=== PATIENT | female | born 1970 | race American Indian/Alaskan Native ===

== ENCOUNTER 2019-03-18 11:21 | Day surgery (SDC) | payer OTHER ==
[~2019-03-18 11:21] MED LIST: NACL 0.9% 1000 ML 1,000 ML IV SCH
--- NOTE | 2019-03-18 12:31 | Anesthesia Day of Surgery ---
Anesthesia Day of Surgery - Day of Surgery Patient Examined: Yes Patient H&P Reviewed: Yes Patient is NPO: Yes
--- NOTE | 2019-03-18 12:32 | Anesthesia Consultation ---
Anesthesia Consult and Med Hx Date of service: 03/18/19 - Airway Anesthetic Teeth Evaluation: Caps, Crowns, Bridges ROM Head & Neck: Adequate Mental/Hyoid Distance: Adequate Mallampati Class: Class I Intubation Access Assessment: Good - Pre-Operative Health Status ASA Pre-Surgery Classification: ASA2 Proposed Anesthetic Plan: MAC - Pulmonary Hx Asthma: Yes - Central Nervous System Hx Back Pain: Yes (LOW BACK PAIN) - Hematic Hx Sickle Cell Disease: No
[2019-03-18] MEDS ORDERED: XYLOCAINE 2% INFILTRATI ONE (13:24)
[2019-03-18] MEDS ORDERED: DIPRIVAN 10 MG/ML IV ONE (13:25)
[2019-03-18] MEDS ORDERED: SUBLIMAZE ONE (13:27)
--- NOTE | 2019-03-18 14:13 | Procedure Note ---
Date of procedure: 03/18/19 Pre-op diagnosis: Dyspepsia/Colon Polyp Screening Post-op diagnosis: other (Mild to Moderate Ina Esophagitis///////////////erosive Esophagitis/Gastritis/Multiple,Colon Polyps/Mild to Moderate Internal Hemorrhoids) Procedure: EGD with Biopsy/Colonoscopy with Cold Biospy and cold,Snare Polypectomt Anesthesia: [facility] Surgeon: LISA MAZA Estimated blood loss: minimal Pathology: list Specimen disposition: to lab Condition: stable Disposition: same day (Treat with PPI and Fluconazole. Avoid aspirin and NSAID for 4 days; otherwise resume home medication and follow up in 1 to 2 weeks ([phone]).)
--- NOTE | 2019-03-18 14:13 | Operative Report ---
PROCEDURE: Esophagogastroduodenoscopy with biopsy. INDICATIONS: The patient is a 48-year-old -[place] female who has been having some dyspeptic symptoms. She has an underlying history of asthma. EGD was done to make sure there was not any significant upper GI pathology present. DESCRIPTION OF PROCEDURE: The procedure was done after getting informed consent with MAC anesthesia. Instrument was passed through the hypopharynx into the esophagus, which showed some whitish plaques suggestive of axuw-gn-cwjyildc Ina esophagitis. Biopsy was done from these areas. There was zykh-wm-[id number] erosive esophagitis present as well as gastritis in the stomach. Biopsy was also done from the gastric antrum, gastric body and angular incisura. Pylorus is patent. Duodenum in the first and second portion appeared normal. There was minimal bleeding associated with the procedure. No complications associated with the procedure. ASSESSMENT: Dyspepsia, mild to moderate Ina esophagitis, mild to moderate erosive esophagitis, gastritis. PLAN: To treat the patient with PPI and fluconazole and to do a colonoscopy for further assessment. The patient will be asked to avoid aspirin and aspirin-related products for the next few days and to resume home medication. Follow up in the office in 1-2 weeks' time. Colonoscopy is to be done as part of colon polyp screening. Procedure was done in the GI lab with assistance of the GI lab team, which included carolyne Case and assistance of anesthesia. Patient will be treated with PPI and fluconazole. JOB# [id number] RAHUL/ANAYELI
--- NOTE | 2019-03-18 14:17 | Operative Report ---
PROCEDURE: Colonoscopy. INDICATIONS: She had an EGD done prior to the colonoscopy, which showed mild to moderate Ina esophagitis, mild to moderate erosive esophagitis, gastritis for which she is to be treated with PPI and fluconazole. Colonoscopy was done as part of colon polyp screening. She states she had a colonoscopy done 5 years ago, which was essentially unremarkable. She gives a family history of some cancer like prostate cancer on her father's side. DESCRIPTION OF PROCEDURE: Initial rectal exam was unremarkable. Instrument was passed through the rectum onto the cecum, which was identified by the ileocecal valve and the appendiceal orifice. Visualization was fair to slightly poor. The mucosa was washed with copious amounts of water. The cecum was visualized on the retroflexed view and no additional pathology was noted. The cecum, ascending colon, transverse colon showed normal mucosa. In the descending colon, there were 2 polyps noted, which was small that were removed by cold biopsy. The sigmoid had a larger polyp that was removed by cold snare polypectomy and retrieved and the rectum showed possibly some flat polyps, possibly hyperplastic that were removed. There was egpw-jk-gmnqehwo internal hemorrhoid on the retroverted view. There was minimal bleeding associated with the polypectomy. No complications associated with the procedure. ASSESSMENT: Colon polyp screening, multiple polyps noted involving the left colon and the rectum and the rectal polyp showed possibly hyperplastic and mild to moderate internal hemorrhoids. The patient will be asked to avoid aspirin and aspirin-related products for the next few days. Follow up in the office in 1-2 weeks' time, treat with PPI and fluconazole because of the EGD findings of mild to moderate Ina esophagitis and erosive esophagitis and gastritis and follow up in 1-2 weeks' time. The procedure was done in the GI lab with assistance of the GI lab team, which included the GI nurse Emilee CABRALES and assistance of anesthesia. JOB# [id number] RAHUL/ANAYELI
[2019-03-18 15:45] VITALS: BP 128/78
== END 2019-03-18 11:22 | disposition home or self-care (01) ==
LOC: GIO 11:21
DX: Z12.11 Encounter for screening for malignant neoplasm of colon (principal); D12.5 Benign neoplasm of sigmoid colon; K29.50 Unspecified chronic gastritis without bleeding; K30 Functional dyspepsia; K21.0 Gastro-esophageal reflux disease with esophagitis; K64.8 Other hemorrhoids; B96.81 Helicobacter pylori [H. pylori] as the cause of diseases classified elsewhere; J45.909 Unspecified asthma, uncomplicated; Z98.890 Other specified postprocedural states; Z79.899 Other long term (current) drug therapy; Z90.710 Acquired absence of both cervix and uterus
CPT/HCPCS: 43239; 45380; 45385; 88305; 88312; 88342; J2704; J3010; J7030